=== PATIENT | female | born 1940 | race Caucasian/White ===

== ENCOUNTER 2021-05-31 10:30 | Outpatient (CLI) | payer MEDICARE ==
[~2021-05-31] VITALS: Ht 165.1 cm; Wt 91.2 kg
[2021-05-31 11:21] LABS: BASOPHILS # (AUTO) 0.1 X10'3 (0-0.2); EOSINOPHILS # (AUTO) 0.2 X10'3 (0-0.9); EOSINOPHILS % (AUTO) 2.6 % (0-6); HEMATOCRIT 46.6 % (35.0-45.0); HEMOGLOBIN 15.7 g/dl (12.0-16.0); LYMPHOCYTES # (AUTO) 1.3 X10'3 (1.1-4.8); LYMPHOCYTES % (AUTO) 16.6 % (21-51); MEAN CORPUSCULAR HEMOGLOBIN 30.9 PG (27.0-31.0); MEAN CORPUSCULAR HGB CONC 33.7 g/dL (33.0-36.5); MEAN CORPUSCULAR VOLUME 91.8 FL (78-98); MEAN PLATELET VOLUME 8.9 FL (7.4-10.4); MONOCYTES # (AUTO) 0.7 X10'3 (0-0.9); MONOCYTES % (AUTO) 9.1 % (2-12); NEUTROPHILS # (AUTO) 5.6 X10'3 (1.8-7.7); NEUTROPHILS % (AUTO) 70.7 % (42-75); PLATELET COUNT 167 X10'3 (140-440); RED BLOOD COUNT 5.08 X10'6 (4.20-5.60); RED CELL DISTRIBUTION WIDTH 16.5 % (11.5-14.5)
[2021-05-31 11:31] LABS: APTT 29 SECONDS (22-32)
[2021-05-31 11:36] LABS: ALANINE AMINOTRANSFERASE 30 U/L (12-78); ALBUMIN 3.4 G/DL (3.4-5.0); ALBUMIN/GLOBULIN RATIO 0.8 (1.1-1.5); ALKALINE PHOSPHATASE 44 IU/L (46-116); ANION GAP 12 (8-16); BLOOD UREA NITROGEN 61 MG/DL (7-18); BUN/CREATININE RATIO 35.5 (6.6-38.0); CALCIUM 9.7 MG/DL (8.5-10.1); CHLORIDE 95 MMOL/L (99-107); CREATININE 1.72 MG/DL (0.40-0.90); GLUCOSE 185 MG/DL (70-104); SODIUM 134 MMOL/L (135-145); TOTAL CARBON DIOXIDE 27.2 MMOL/L (24-32); TOTAL PROTEIN 7.7 G/DL (6.4-8.2); eGFR 28 ML/MIN
[2021-05-31 11:38] LABS: ASPARTATE AMINO TRANSFERASE 26 U/L (10-37); BILIRUBIN,TOTAL 0.8 MG/DL (0.1-1.0); POTASSIUM 3.6 MMOL/L (3.5-5.1)
[2021-05-31] MEDS ORDERED: albuterol 2.5 MG/3 ML nebule NEB ONE (13:00)
[2021-05-31 13:10] LABS: ABG BASE EXCESS 3.2 mmol/L (-2.0-2.0); ABG HCO3 27.6 mmol/L (22.0-26.0); ABG OXYGEN SATURATION 95.5 % (94-97); ABG PCO2 (T) 41.2 mmHg (32.0-45.0); ABG PO2 (T) 72.5 mmHg (75.0-100.0); ALLEN'S TEST POSITIVE; FCOHb 1.5 % (0.0-3.9); FMetHb 0.2 % (0.0-1.5); FO2Hb 93.9 % (94-97); TOTAL HEMOGLOBIN 16.4 G/dl (12.0-16.0)
[2021-05-31] MEDS ORDERED: IODIXANOL 320 MG/ML INFUS..BTL 100ML IV ONE (14:23)
[2021-05-31] MEDS ORDERED: IODIXANOL 320 MG/ML INFUS..BTL 50ML IV ONE (14:23)
[2021-05-31] MEDS ORDERED: atropine 0.1mg/ml 10ml syringe ONE (14:45)
[2021-05-31] MEDS ORDERED: metoprolol tartrate 1mg/ml inj IV ONE (14:45)
[2021-05-31 14:50] VITALS: BP 155/93
[2021-05-31 14:55] VITALS: BP 140/93
== END 2021-05-31 23:59 | disposition home or self-care (01) ==
LOC: RAD 10:30
PROVIDERS: ATTEND Internal Medicine Cardiovascular Disease
DX: K42.9 Umbilical hernia without obstruction or gangrene (principal); K44.9 Diaphragmatic hernia without obstruction or gangrene; I65.23 Occlusion and stenosis of bilateral carotid arteries; I70.0 Atherosclerosis of aorta; R94.2 Abnormal results of pulmonary function studies; M47.819 Spondylosis without myelopathy or radiculopathy, site unspecified; I35.0 Nonrheumatic aortic (valve) stenosis; R06.02 Shortness of breath; I65.29 Occlusion and stenosis of unspecified carotid artery; Z20.822 Contact with and (suspected) exposure to COVID-19
CPT/HCPCS: 36415; 36600; 71046; 71275; 74174; 80053; 82803; 85018; 85025; 85610; 85730; 87635; 93005; 93880; 94060; 94727; 94729; 94760; C9803; J3490; Q9967; J0461